=== PATIENT | female | born 1990 | race Caucasian/White ===

== ENCOUNTER → 2017-05-23 13:32 | Outpatient (CLI) | payer MEDICAID, SELFPAY ==
[2017-05-26 09:37] LABS: HPV Reflexed? NOT INDICATED
== END ==
PROVIDERS: Family Provider Family Medicine; PCP Family Medicine; Visit Provider Nurse Practitioner Women's Health
DX: Z12.4 Encounter for screening for malignant neoplasm of cervix (principal)
CPT/HCPCS: 88175; G0145

== ENCOUNTER → 2017-05-27 13:27 | Outpatient (CLI) | payer MEDICAID, SELFPAY ==
--- NOTE | 2017-05-27 13:30 | US_ITS ---
STUDY: ULTRASOUND OF THE FEMALE PELVIS - COMPLETE REASON FOR EXAM: Female, 26 years old. Pelvic pain LMP: 04/18/2017. TECHNIQUE: Transabdominal and Transvaginal TECHNICAL QUALITY: Adequate. COMPARISON: None. FINDINGS: The uterus is anteverted and is in a midline position. The uterus measures 7.2 x 5.9 x 4 cm. Normal uterine cervix. The endometrium measures 10 mm in thickness, and is heterogeneous (striated). There is no demonstrated endometrial mass. There is no demonstrated myometrial mass. I.U.D. - The patient does not have an I.U.D. The right ovary is visualized. The right ovary measures 5 x 3.6 x 1.5 cm. There is no right ovarian cyst or ovarian mass. There is no visualized right adnexal mass or complex lesion. There is normal arterial and normal venous vascularity. The left ovary is visualized. The left ovary measures 3.4 x 2.6 x 3.4 cm. There is a small cyst/prominent follicle in the left ovary measuring about 1.5 cm. There is no visualized left adnexal mass or complex lesion. There is normal arterial and normal venous vascularity. There is no fluid in the cul-de-sac. The pre void volume of the bladder was 114 ml. US/Transvaginal Non- IMPRESSION: No significant abnormality is seen. Electronically Signed: Julio Cesar Lopez MD at 14:49 EDT Tel , Service support ,
--- NOTE | 2017-05-27 13:30 | US_ITS ---
STUDY: ULTRASOUND OF THE FEMALE PELVIS - COMPLETE REASON FOR EXAM: Female, 26 years old. Pelvic pain LMP: 04/18/2017. TECHNIQUE: Transabdominal and Transvaginal TECHNICAL QUALITY: Adequate. COMPARISON: None. FINDINGS: The uterus is anteverted and is in a midline position. The uterus measures 7.2 x 5.9 x 4 cm. Normal uterine cervix. The endometrium measures 10 mm in thickness, and is heterogeneous (striated). There is no demonstrated endometrial mass. There is no demonstrated myometrial mass. I.U.D. - The patient does not have an I.U.D. The right ovary is visualized. The right ovary measures 5 x 3.6 x 1.5 cm. There is no right ovarian cyst or ovarian mass. There is no visualized right adnexal mass or complex lesion. There is normal arterial and normal venous vascularity. The left ovary is visualized. The left ovary measures 3.4 x 2.6 x 3.4 cm. There is a small cyst/prominent follicle in the left ovary measuring about 1.5 cm. There is no visualized left adnexal mass or complex lesion. There is normal arterial and normal venous vascularity. There is no fluid in the cul-de-sac. The pre void volume of the bladder was 114 ml. US/Pelvic (Non ) IMPRESSION: No significant abnormality is seen. Electronically Signed: Julio Cesar Lopez MD at 14:49 EDT Tel , Service support ,
== END ==
PROVIDERS: Family Provider Family Medicine; PCP Family Medicine; Visit Provider Nurse Practitioner Women's Health
DX: R10.2 Pelvic and perineal pain (principal)
CPT/HCPCS: 76830; 76856; 93976

== ENCOUNTER 2018-04-10 06:30 | Emergency (ER) | payer MEDICARE, SELFPAY ==
[2018-04-10 06:31] VITALS: BP 112/80; PULSE 95; RESP 18; TEMP 36.7; O2SAT 99; BMI 16.9
--- NOTE | 2018-04-10 06:49 | US_ITS ---
STUDY: ULTRASOUND TRANSVAGINAL CLINICAL: Female, 27 years old. Pelvic pain TECHNIQUE: Transvaginal COMPARISON: May 27, 2017 FINDINGS: Normal uterine size measuring 9.4 x 5.9 x 4.4 cm in maximal craniocaudal dimension. There are no myometrial masses. Normal endometrial thickness measuring 14 mm. There are no endometrial masses, and there is no fluid in the endometrial cavity. Normal uterine cervix. Normal right ovary, measuring 2.6 x 1.5 x 1.8 cm. There is a 1.4 x 0.9 x 0.8 cm complex cystic structure within the right ovary. Normal left ovary, measuring 4.5 x 3.4 x 2.3 cm. There is a 1.6 x 1.2 x 1.3 cm hypoechoic structure within the left ovary. There is a 1.1 x 1.7 x 1.6 cm hypoechoic structure left ovary.. Small amount of fluid within the pelvis. There is a debris within the bladder. Polycystic ovary disease: No. US/Transvaginal Non- IMPRESSION: Bilateral ovarian flow identified. Debris within the urinary bladder. Correlate with urinalysis. This could represent blood products or infectious process. Small amount of fluid within the pelvis. Bilateral adnexal complex cystic structures. These may represent hemorrhagic or complex cyst. However other etiologies cannot be totally excluded and recommend 6-8 week follow-up ultrasound for resolution. Electronically Signed: Pool Kevin, at 7:57 EST Tel , Service support ,
[2018-04-10 06:56] LABS: Absolute Lymphocyte Count 2.23 X10^3/ul (0.83-4.51); Absolute Neutrophil Count 6.1 X10^3/uL (2.0-7.7); Basophil# 0.06 X10^3/uL; Basophil% 0.6 % (0-1); Differential Indicated SCAN CRITERIA MET; Eosinophil# 0.16 X10^3/uL; Eosinophils% 1.7 % (0-5); Hematocrit 42.1 % (37-47); Hemoglobin 14.3 g/dl (12.0-15.0); Lymphocyte # 2.23 X10^3/ul (4.0); Lymphocyte % 23.9 % (19-41); Mean Corpuscular Hgb 30.6 pg (27.0-32.0); Mean Corpuscular Volume 90.1 fL (81-99); Mean Platelet Vol. 9.9 fl (6.2-12.0); Monocyte# 0.79 X10^3/uL; Monocyte% 8.5 % (0-10); Neutrophil # 6.06 X10^3/uL (2.7-7.7); Neutrophil % 65.1 % (47-70); POSITIVE COUNT NO; POSITIVE DIFFERENTIAL NO; POSITIVE MORPHOLOGY YES; Platelet Count 322 K/mm3 (150-450); RBC Distribution Width CV 12.6 % (11.6-14.6); RBC Distribution Width SD 40.7 fl (35.1-43.9); Red Blood Count 4.67 M/mm3 (4.2-5.4); White Blood Count 9.3 K/mm3 (4.4-11.0)
[2018-04-10 07:01] LABS: Anion Gap 7 (5-15); BUN 14 mg/dL (7-18); BUN/Creat Ratio 19.3 RATIO (10-20); Calcium,Total 8.2 mg/dL (8.5-10.1); Chloride 111 mmol/L (98-107); Creatinine, Serum 0.73 mg/dL (0.55-1.02); EST Glomerular Filtration Rate 101 mL/min (>60); Est Glom Filt Rate - Afr Amer 122 mL/min (>60); Estimated Creatinine Clearance 73.94 ml/min; Glucose 110 mg/dL (74-106); Potassium 3.7 mmol/L (3.5-5.1); Sodium Level 140 mmol/L (136-145)
--- NOTE | 2018-04-10 08:10 | ED.DCSUM_ITS ---
- ER Visit Summary Date of Service: 04/10/18 Chief Complaint: Abdominal pain History of Present Illness: The patient is a 27 F who presents with suprapubic abdominal pain. It began about 5 hours ago. She describes it as stabbing. Severe. She feels better when she bends her legs up towards her. She has nauseated. No vomiting. No diarrhea. No dysuria frequency urgency hematuria. No history of prior similar symptoms. She does have a history of prior tubal ligation and LEEP. She has a history of depression and anxiety. Physical Examination: Afebrile vitals normal Moist mucous membranes Heart regular rate and rhythm Lungs clear Abdomen soft nondistended she has suprapubic abdominal tenderness without guarding without rebound Alert Test Results: CBC BMP normal. Pelvic ultrasound shows bilateral ovarian flow, there is debris in the urinary bladder, there are bilateral adnexal complex cystic structures concerning for hemorrhagic or complex ovarian cysts. Emergency Department Course and Treatment: On reevaluation patient is lying on her side crying. However she does not have guarding she is out of rebound. She does appear to have bilateral cysts and possible UTI as well. She has not yet provided a UA. IV Toradol and Zofran have been ordered. Patient will be signed out to the oncoming physician to reevaluate. If able to obtain adequate pain control she can be discharged to follow-up with [facility]. Treatment Plan: [] Disposition: Pending UA, reevaluation Impression: Bilateral ovarian cysts This note was generated with [employer] dictation software. It may contain incorrect words, spelling, and punctuation that were not noted in review of the chart prior to signing ED Disposition - Plan for ED Patient: Referrals: Abiel Hood MD [Primary Care Provider] -
--- NOTE | 2018-04-10 08:11 | ED.DEP ---
ED Disposition - Plan for ED Patient: Instructions: ED Cyst Ovarian Prescriptions: Hydrocodone Bitart/Apap 5-325 [Eldred 5MG-325MG] 1 tab PO Q6H PRN PRN 3 Days #10 tab PRN Reason: Pain Referrals: Abiel Hood MD [Primary Care Provider] - Geovanna Ch DO [STAFF PHYSICIAN] -
[2018-04-10 08:26] LABS: Squamous Epithelial Cells - UA 0 SEEN /hpf (5-10)
[2018-04-10] MEDS: Ketorolac 30 MG/ML Syringe IV (08:29)
[2018-04-10] MEDS: Ondansetron 4 MG/2 ML Vial IV (08:29)
[2018-04-10 08:30] LABS: Color, Urine Yellow (Yellow); Glucose, Dipstick Normal (Normal); Ketone-Dipstick 5 mg/dl (Negative); Leukocyte Esterase-Dipstick 100 /ul (Negative); Nitrite-Dipstick Positive (Negative); Occult Blood-Urine 10 /ul (Negative); Protein-Dipstick 30 mg/dl (Negative); Urine Bilirubin Dipstick Negative (Negative); Urine Clarity Cloudy (Clear); Urine Urobilinogen Normal (Normal); Urine pH 6.5 (5.0 - 8.0)
[2018-04-10 08:33] VITALS: RESP 16
[2018-04-10 09:02] LABS: Bacteria 4+ /hpf (None Seen); Mucous, Urine 1+ /hpf (<or=2+); Red Blood Cells-Urine 0-5 SEEN /hpf (0-5); White Blood Cells 10-25 SEEN /hpf (0-5)
[2018-04-10 10:05] LABS: Internal QC Validated? YES +Cl - CLEAR BKGD; Pregnancy, Urine Negative Negative
[2018-04-10 10:21] VITALS: BP 106/76; PULSE 76; RESP 17; O2SAT 97
--- NOTE | 2018-04-10 10:22 | ED.RN ---
IV DC'ED, CATHETER INTACT, SMALL GAUZE DRESSING PLACED. DISCHARGE INSTRUCTIONS GIVEN TO AND REVIEWED WITH PATIENT, PATIENT DENIES QUESTIONS OR CONCERNS AND VOICES UNDERSTANDING OF DISCHARGE INSTRUCTIONS. PT AMBULATES OUT OF ROOM WITHOUT DIFFICULTY.
== END 2018-04-10 10:23 | disposition home or self-care (01) ==
PROVIDERS: Emergency Provider Emergency Medicine; Family Provider Family Medicine; PCP Family Medicine
DX: N83.202 Unspecified ovarian cyst, left side (principal); N83.201 Unspecified ovarian cyst, right side; Z98.51 Tubal ligation status; Z72.0 Tobacco use; R10.2 Pelvic and perineal pain
CPT/HCPCS: 76830; 80048; 81001; 81025; 85025; 93976; 96374; 96375; 99283; A4216; J2405

== ENCOUNTER 2019-04-03 13:02 | Emergency (ER) | payer MEDICARE, MEDICAID, SELFPAY ==
[2019-04-03 13:03] VITALS: BP 141/106; PULSE 118; RESP 16; TEMP 36.6; O2SAT 99; BMI 18.5
--- NOTE | 2019-04-03 15:05 | ED.DCSUM_ITS ---
- ER Visit Summary Date of Service: 04/03/19 Chief Complaint: Hit in the right eye with a toy accidentally by her child History of Present Illness: The patient is a 28 F past medical history of mitral valve prolapse. No prior eye history or eye surgery. She does wear glasses occasionally. Does not wear contacts. Patient states on Tuesday her child was playing with a toy that actually struck her in the right eye. She says it feels like it was a scratch or foreign body on the medial aspect of her right eye. She denies any discharge other than watering. It is uncomfortable. Physical Examination: Young female no acute distress vital signs stable afebrile. H EENT exam pupils equal round reactive to light. 2 mm bilaterally. Extraocular motions are intact. There is a small subconjunctival hemorrhage about midnight on the right eye on the sclera above the iris. The right eye is injected. Is watering. There is no discharge. Upper and lower lids were everted were unremarkable. Tetracaine was instilled in the right eye and did cause immediate relief. Slit-lamp examination was performed after fluorescein staining. At about 4:00 on the iris there is a small corneal abrasion. No foreign body noted. No ulcer. Otherwise unremarkable. Lungs are clear. Heart regular rhythm no murmur. Otherwise exam unremarkable. There is no other signs of any facial trauma or preauricular lymphadenopathy. There is no proptosis or periorbital orbital cellulitis. Test Results: Slit-lamp exam right eye. Emergency Department Course and Treatment: Tetracaine improved the discomfort. Bacitracin ophthalmic ointment was placed in the right eye she will be discharged. Treatment Plan: With ophthalmology as needed. Bacitracin twice daily. Tetracaine for the next 24 hours for pain. Then discard. Disposition: discharge Impression: Acute right eye corneal abrasion This note was generated with [employer] dictation software. It may contain incorrect words, spelling, and punctuation that were not noted in review of the chart prior to signing ED Disposition - Plan for ED Patient: Referrals: Abiel Hood MD [Primary Care Provider] -
--- NOTE | 2019-04-03 15:09 | ED.DEP ---
ED Disposition - Plan for ED Patient: Disposition: Home or Assisted Living Instructions: ED Corneal Abrasion Referrals: Lawrence Goldberg MD [STAFF PHYSICIAN] - 3-5 Days if not improving Additional Instructions: Current antibiotic ointment twice daily. Cool compresses to the right eye. Tylenol and/or Motrin for pain. For the next 24 hours you may use the tetracaine eyedrops for pain. After tomorrow night Tuesday night you can no longer use them because they retard healing. Follow-up with the eye doctor if not improving.
[2019-04-03] MEDS: Fluorescein 1 MG STRIP 1 STRIP RIGHT EYE (15:15)
[2019-04-03] MEDS: Tetracaine 0.5% Ophthalmic Bottle 6 DRP RIGHT EYE (15:15)
== END 2019-04-03 15:18 | disposition home or self-care (01) ==
PROVIDERS: Emergency Provider Emergency Medicine; PCP Family Medicine
DX: S05.01XA Injury of conjunctiva and corneal abrasion without foreign body, right eye, initial encounter (principal); W22.8XXA Striking against or struck by other objects, initial encounter; Y93.9 Activity, unspecified; Y92.89 Other specified places as the place of occurrence of the external cause; Y99.9 Unspecified external cause status; H11.31 Conjunctival hemorrhage, right eye; I34.1 Nonrheumatic mitral (valve) prolapse; Z72.0 Tobacco use
CPT/HCPCS: 99282

== ENCOUNTER 2021-12-17 17:07 | Emergency (ER) | payer MEDICARE, MEDICAID, SELFPAY ==
[2021-12-17 17:08] VITALS: BP 130/90; PULSE 103; RESP 14; TEMP 36.8; O2SAT 99; BMI 22.8
--- NOTE | 2021-12-17 17:21 | EDS_ITS ---
HPI History of Present Illness Chief Complaint: Dental Informant: patient Narrative Narrative: 31-year-old female she resenting to the emergency room out of concern for dental abscess. Patient began to have a left lower jaw pain and swelling last night that increased in size and pain today. She states the tooth that is painful has been broken for some time. She is a smoker. Her dentist retired 2 years ago. She states that she has found a dentist in [place] but has not yet established care. She denies any fevers. [facility] Medical History Abnormal Pap smear of cervix Anxiety Home Medications amoxicillin 875 mg-potassium clavulanate 125 mg tablet 875 mg PO Q12H #20 TAB LETS 12/17/21 [Rx Last Taken Unknown] hydrocodone-acetaminophen 5-325mg 5mg-325mg 1 tab PO Q6H PRN PRN Pain 3 days #12 TABLETS 12/17/21 [Rx Last Taken Unknown] Allergy/AdvReac Type Severity Reaction Status Date / Time citalopram [From Celexa] Allergy Hives Verified 04/03/19 13:05 bupropion HCl AdvReac Other Verified 04/03/19 13:05 [From Wellbutrin] fluoxetine HCl [From Prozac] AdvReac Upset Verified 04/03/19 13:05 Stomach paroxetine HCl [From Paxil] AdvReac Other Verified 04/03/19 13:05 sertraline HCl [From Zoloft] AdvReac Upset Verified 04/03/19 13:05 Stomach Surgical History H/O LEEP Tubal ligation status Social History Smoking Status: Current every day smoker alcohol intake: never substance use type: does not use caffeine: Yes (occasionally) what type of physical activity do you participate in: none seatbelt use: always do you feel safe at home: Yes additional social history: Single Patient is currently unemployed ROS ROS ED Constitutional Constitutional ED: Denies chills or weight loss Eyes Eyes: Denies change in vision or diplopia ENT ENT ED: Reports other Details: There is some swelling along the right mandible. The first molar is severely decayed. The floor the mouth is soft and I do not appreciate any trismus. There is no overlying erythema and there is no drainable abscess that I can see at this time. ; Denies ear pain, rhinorrhea or sore throat Cardiovascular Cardiovascular: Denies chest pain, orthopnea, palpitations or racing heartbeat Respiratory/Chest Respiratory/Chest: Denies cough, dyspnea or orthopnea Gastrointestinal Gastrointestinal: Denies abdominal pain, diarrhea, nausea or vomiting Genitourinary Genitourinary ED: Denies dysuria, hematuria or urinary frequency Musculoskeletal Musculoskeletal: Denies arthralgias or myalgias Integumentary Denies abscess or rash Neurologic Neurologic: Denies headache(s) or weakness Psychiatric Psychiatric: Denies anxiety, depression, suicidal ideation or suicidal thoughts Endocrine Endocrinology: Denies polydipsia, polyphagia or polyuria Allergic/Immunologic Allergic/Immunologic ED: Denies mouth swelling, tongue swelling or urticaria EXAM Physical Exam Const Vital Signs: 12/17/21 17:08 Temperature 98.2 F Temperature Source Temporal Pulse Rate 103 H Respiratory Rate 14 Blood Pressure 130/90 H Blood Pressure Mean 103 Pulse Ox 99 Oxygen Delivery Method Room Air MDM MDM MDM Narrative Medical decision making narrative: Patient will be started on antibiotics and pain medication. Instructions to see dentist as soon as possible Discharge Plan Triage Chief Complaint: Dental ED Provider: Juan Perry Dx/Rx/DC Orders Clinical Impression: Abscess, dental, Acute facial pain, MVP (mitral valve prolapse) Instructions: ED Dental Abscess Prescriptions: New hydrocodone-acetaminophen [hydrocodone-acetaminophen] 5-325 mg tablet 1 tab PO Q6H PRN PRN (Reason: Pain) 3 Days Qty: 12 0RF amoxicillin-pot clavulanate [amoxicillin-pot clavulanate] 875-125 mg tablet 875 mg PO Q12H Qty: 20 0RF Primary Care Provider: Abiel Hood Referrals: Abiel Hood MD [Primary Care Provider] - Disposition Disposition: Home, Self Care
== END 2021-12-17 17:35 | disposition home or self-care (01) ==
LOC: ED 17:32
PROVIDERS: Emergency Provider Emergency Medicine; PCP Family Medicine; Visit Provider Emergency Medicine
DX: K04.7 Periapical abscess without sinus (principal); R51.9 Headache, unspecified; F17.200 Nicotine dependence, unspecified, uncomplicated; I34.1 Nonrheumatic mitral (valve) prolapse
CPT/HCPCS: 99282

== ENCOUNTER 2023-04-15 06:35 | Day surgery (SDC) | payer MEDICARE, MEDICAID, SELFPAY ==
--- NOTE | 2023-04-13 17:15 | PCM.HP.BLA ---
History and Physical Date of Admission: 04/15/23 Expand All Collapse All Pre-Op History and Physical ? HPI: The patient is a 32 year old female presenting for discussion regarding AUB/EMB polyp and upcoming surgery. Pt reports has bleeding constarntly. Sometimes heavy but just annoying. Pt wants to know if this surgery will help stop bleeding. Pt uses tubal ligtion for BC. ? pre-operative visit. She is scheduled for Hysteroscopy D&C and polypectomy, for AUB, EM polyps found on ultrasound on 04/15/23. Procedure discussed along with risks, benefits and complications. Other alternatives discussed for management. Consent form signed? Yes. ? ? PAST MEDICAL HISTORY PAST MEDICAL HISTORY Diagnosis Date ? Abnormal Pap smear of cervix ? ? ADHD (attention deficit hyperactivity disorder) ? ? Anxiety ? ? Depression ? ? Mitral valve prolapse 2008 ? Post depression ? ? ? PAST SURGICAL HISTORY PAST SURGICAL HISTORY Procedure Laterality Date ? LEEP PROCEDURE ([facility])_*[place] ? 2010 ? LIGATE FALLOPIAN TUBE ? 10/04/2016 ? PAST SURGICAL HISTORY OF ? 2012 ? wisdom teeth ? ? ? CURRENT MEDICATIONS Current Outpatient Medications Medication Sig Dispense Refill ? mirtazapine (REMERON) 15 mg tablet ? atomoxetine (STRATTERA) 25 mg capsule ? cetirizine (ZYRTEC) 10 mg tablet Take 1 tablet by mouth once daily. 30 tablet 5 ? desvenlafaxine ER (PRISTIQ) 50 mg 24 hr tablet Take 1 tablet by mouth once daily. 30 tablet 11 ? ibuprofen (MOTRIN) 800 mg tablet Take 1 tablet by mouth every 8 hours as needed for pain. Take with food. 30 tablet 1 ? Cholecalciferol, Vitamin D3, (VITAMIN D) 25 mcg (1,000 unit) cap Take 1,000 Units by mouth once daily. ? ? ? No current facility-administered medications for this visit. ? ? ALLERGIES: Celexa [Citalopram], Paxil [Paroxetine Hcl], Prozac [Fluoxetine Hcl], Wellbutrin [Bupropion Hcl], and Zoloft [Sertraline Hcl] ? PERSONAL HISTORY: SOCIAL HISTORY Social History ? Tobacco Use ? Smoking status: Every Day ? ? Packs/day: 0.50 ? ? Years: 10.00 ? ? Additional pack years: 0.00 ? ? Total pack years: 5.00 ? ? Types: Cigarettes ? ? Passive exposure: Current ? Smokeless tobacco: Never ? Tobacco comments: ? ? Was 1 ppd Vaping Use ? Vaping Use: Some days ? Substances: Nicotine Substance Use Topics ? Alcohol use: No ? Drug use: No ? FAMILY HISTORY: FAMILY HISTORY FAMILY HISTORY Problem Relation Age of Onset ? Psychiatry Mother ? ? anxiety,depression ? Psychiatry Father ? ? PTSD ? Psychiatry Sister ? ? other (anxiety) Sister ? ? other (depression) Sister ? ? other (ADHD) Brother ? ? Heart Maternal Grandmother ? ? Heart Maternal Grandfather ? ? Heart Paternal Grandmother ? ? Diabetes Paternal Grandfather ? ? Heart Paternal Grandfather ? ? Leukemia Maternal Uncle ? ? ? REVIEW OF SYMPTOMS: negative except as noted above PHYSICAL EXAMINATION: ? VITALS: Blood pressure 102/60, weight 108 lb (49 kg), last menstrual period 03/26/2023, not currently . ? GENERAL: The patient is well nourished, well hydrated in no acute distress. , The patient is oriented to time, place, and person. NECK: full range of motion ? ? IMPRESSION: AUB, EM polyp on ultrasound ? PLAN: Hysteroscopy, D&C, polypectomy with symphion ? Pt has been counseled on risks/benefits and alternatives of surgery including but not limited to anesthesia, bleeding, infection, uterine perforation with subsequent injury to pelvic structures including bowel, bladder, ureters and vessels. Pt wishes to proceed with surgery at this time. ? I have reviewed and updated past medical and surgical history, medications and allergies Kierra Cross MD Office Visit on 04/13/2023 Office Visit on 04/13/2023 Note shared with patient
--- OUTSIDE RECORDS SUMMARY | 2023-04-15 06:56 | XMS RPT_ITS | CCD ---
Author Name Unknown Address [address] [place] [address] Organization [facility] Care Team Providers Care Product Sales Representative Name Role Phone Nicolasa Chacon MD Unavailable [phone] Prosper [employer], Alyssa Lopes Unavailable [phone] ALLEN THOMPSON Unavailable Unavailable JHONNY SCHULTZ Unavailable Unavailable JHONNY SCHULTZ Unavailable Unavailable Prosper [employer], Alyssa Lopes Unavailable [phone] Nicolasa Chacon MD Unavailable [phone] JUAN MANUEL CARL Attending Unavailable JHONNY SCHULTZ Primary Care Unavailable RENEE SCHMIDT Referring Unavailable JHONNY SCHULTZ Primary Care Unavailable RENEE SCHMIDT Attending Unavailable JHONNY SCHULTZ Primary Care Unavailable JHONNY SCHULTZ Primary Care Unavailable Jhonny Schultz MD Primary Care Provider [phone] Allergies Allergy Classification Reported Allergen(s) Allergy Type Date of Onset Reaction(s) Facility (12 sources) buPROPion drug allergy 7 [facility] (12 sources) citalopram drug allergy 7 [facility] (12 sources) FLUoxetine drug allergy 7 [facility] (12 sources) PARoxetine drug allergy 7 [facility] (12 sources) sertraline drug allergy 7 [facility] (2 sources) buPROPion; Translations: [BUPROPION HCL] Drug Allergy 2 GI Upset [facility] (2 sources) Citalopram; Translations: [CITALOPRAM] Drug Allergy 7 Other: See Comments [facility] (2 sources) FLUoxetine; Translations: [FLUOXETINE HCL] Drug Allergy 2 GI Upset [facility] (2 sources) PARoxetine; Translations: [PAROXETINE HCL] Drug Allergy 2 GI Upset [facility] (2 sources) Sertraline; Translations: [SERTRALINE HCL] Drug Allergy 2 GI Upset [facility] Medications Completed/Discontinued Medications Medication Drug Class(es) Dates Sig (Normalized) Sig (Original) atomoxetine 25 mg oral capsule (1 source) Norepinephrine Reuptake Inhibitor Start: 02-15-2023 atomoxetine (STRATTERA) 25 mg capsule cetirizine hydrochloride 10 mg oral tablet (1 source) Histamine-1 Receptor Antagonist Start: 09-02-2021 take 1 tablet by mouth once daily cetirizine (ZYRTEC) 10 mg tablet Indications: Allergy, subsequent encounter Take 1 tablet by mouth once daily. 30 tablet 5 09/02/2021 Active Problems Active Problems Problem Classification Problem Date Documented Da te Episodic/Chronic Heart valve disorders (1 source) Mitral valve prolapse; Translations: [Nonrheumatic mitral (valve) prolapse] Onset: 02-18-2023 02-18-2023 Chronic Menstrual disorders (2 sources) Irregular menstruation, unspecified; Translations: [Excessive and frequent menstruation with irregular cycle] Onset: 03-04-2023 Chronic Other female genital disorders (1 source) Abnormal uterine bleeding; Translations: [Abnormal uterine and vaginal bleeding, unspecified] 04-13-2023 Chronic Other female genital disorders (1 source) Polyp of corpus uteri; Translations: [Polyp of corpus uteri] 04-13-2023 Episodic Unclassified (2 sources) care ; Translations: [Encounter for routine follow-up] Onset: 11-18-2016 11-18-2016 Unclassified (1 source) Unknown / UNK(Unknown) Onset: 08-25-2016 Past or Other Problems Problem Classification Problem Date Documented Date Episodic/Chronic Cancer of cervix (1 source) Low grade squamous intraepithelial lesion on cervical Papanicolaou smear; Translations: [Low grade squamous intraepithelial lesion on cytologic smear of cervix (LGSIL)] Onset: 03-31-2016 03-31-2016 Episodic Malaise and fatigue (1 source) Other fatigue; Translations: [Lethargic ] Onset: 10-13-2022 Episodic Nonspecific chest pain (1 source) Chest pain Onset: 08-25-2016 Episodic Normal and/or delivery (8 sources) Gestation period, 39 weeks; Translations: [39 weeks gestation of ] Onset: 09-23-2016 Resolved: 11-18-2016 11-18-2016 Episodic Other aftercare (1 source) Other parts counterman (current) drug therapy; Translations: [On angiotensin receptor blockers (ARB)] Onset: 10-13-2022 Episodic Other circulatory disease (1 source) H/O: heart disorder; Translations: [Personal history of other diseases of the circulatory system] Onset: 03-11-2016 03-11-2016 Episodic Other complications of ; puerperium affecting management of mother (20 sources) High risk ; Translations: [Supervision of high risk , unspecified, third trimester] Onset: 09-23-2016 Resolved: 11-18-2016 11-18-2016 Episodic Other complications of (1 source) Previous operation to cervix affecting ; Translations: [Maternal care for other abnormalities of cervix, unspecified trimester] Onset: 11-25-2014 11-25-2014 Episodic Screening and history of mental health and substance abuse codes (1 source) H/O: depression; Translations: [Personal history of other mental and behavioral disorders] Onset: 03-11-2016 03-11-2016 Episodic Unclassified (12 sources) 38 weeks gestation of ; Translations: [38 weeks gestation of ] Onset: 09-23-2016 09-23-2016 Results Test Name Value Interpretation Reference Range Facil ity Vital Signs Date Time Vital Sign Value Performing Clinician Faci lity 04-13-2023 09:32-0500 Body weight 48.99 kg Kierra Cross MD Work Phone: [facility] 04-13-2023 09:32-0500 Diastolic blood pressure 60 mm[Hg] Kierra Cross MD Work Phone: [facility] 04-13-2023 09:32-0500 Systolic blood pressure 102 mm[Hg] Kierra Cross MD Work Phone: [facility] 09-28-2017 14:45-0400 BMI (Body Mass Index) 20.33 kg/m2 Nicolasa Chacon MD [facility] 11-18-2016 14:45-0400 Body Temperature 97.3 [degF] Nicolasa Chacon MD [facility] 11-18-2016 14:45-0400 BP Diastolic 71 mm[Hg] Nicolasa Chacon MD [facility] 11-18-2016 14:45-0400 BP Systolic 118 mm[Hg] Nicolasa Chacon MD [facility] 11-18-2016 14:45-0400 Pulse (Heart Rate) 63 /min Nicolasa Chacon MD [facility] 11-18-2016 14:45-0400 Respiratory Rate 16 /min Nicolasa Chacon MD [facility] 11-18-2016 14:45-0400 Weight 48.81 kg Nicolasa Chacon MD [facility] 09-29-2016 11:22-0400 BMI (Body Mass Index) 21.95 kg/m2 Alyssa Cheng [employer] [facility] 09-29-2016 11:22-0400 Body Temperature 97.9 [degF] Alyssa Prosper [facility] 09-29-2016 11:22-0400 BP Diastolic 68 mm[Hg] Alyssa Prosper [employer] [facility] 09-29-2016 11:22-0400 BP Systolic 110 mm[Hg] Alyssa Orchard [employer]ER [facility] 09-29-2016 11:22-0400 Pulse (Heart Rate) 82 /min Alyssa Prosper [employer]ICER [facility] 09-29-2016 11:22-0400 Respiratory Rate 16 /min Alyssa Orchard [employer]ER [facility] 09-29-2016 11:22-0400 Weight 52.71 kg Alyssa Edwardss [employer]ER [facility] 09-23-2016 15:34-0400 BMI (Body Mass Index) 21.92 kg/m2 Alyssa Prosper [employer]ICER [facility] 09-23-2016 15:34-0400 Body Temperature 97.9 [degF] Alyssa Orchard [employer] [facility] 09-23-2016 15:34-0400 BP Diastolic 66 mm[Hg] Alyssanegrito Edwardss [employer]ER [facility] 09-23-2016 15:34-0400 BP Systolic 102 mm[Hg] Alyssanegrito Cheng [employer] [facility] 09-23-2016 15:34-0400 Height 154.94 cm Alyssa Prosper [employer] [facility] 09-23-2016 15:34-0400 Pulse (Heart Rate) 88 /min Alyssa Cheng [employer] [facility] 09-23-2016 15:34-0400 Respiratory Rate 16 /min Alyssa Cheng [employer] [facility] 09-23-2016 15:34-0400 Weight 52.62 kg Alyssa Orchard [employer] [facility] Encounters Encounter Date Encounter Type Care Provider Facility Start: 04-13-2023 End: 04-13-2023 Patient encounter procedure Kierra Cross MD Work Phone: OB/Gynecology Procedures Date Procedure Procedure Detail Performing Clinician Start: 10-03-2016 End: 10-03-2016 Antibody screen Nicolasa Peters Start: 09-29-2016 End: 09-29-2016 Antepartum care only Alyssa Cheng [employer] Work Phone: Start: 09-23-2016 End: 09-23-2016 Antepartum care only Alyssa Cheng [employer] Work Phone: Start: 09-23-2016 End: 09-27-2016 Streptococcus agalactiae DNA [Presence] in Unspecified specimen by GABRIELLA with probe detection Alyssa Cheng [employer] Work Phone: Plan of Treatment Date Care Activity Detail Author Start: 02-19-2028 Screening for malignant neoplasm of cervix [facility] Start: 07-14-2026 Urine microalbumin profile DTaP,Tdap,Td Vaccine (8 - Td or Tdap) [facility] Start: 02-21-2023 Depression Assessment Depression Assessment [facility] Start: 10-22-2022 Influenza [facility] Start: 11-18-2016 End: 11-18-2016 Appointment Appointment [facility] Start: 10-06-2016 End: 10-06-2016 Appointment Appointment [facility] Start: 09-29-2016 End: 09-29-2016 Appointment Appointment [facility] Start: 09-23-2016 End: 09-23-2016 Appointment Appointment [facility] Start: 09-23-2016 End: 09-23-2016 HbA1c HGBA1C [facility] Start: 09-23-2016 End: 09-23-2016 Ob us >/= 14 wks, sngl fetus US OB, >14 weeks [facility] Start: 09-23-2016 End: 09-27-2016 Streptococcus agalactiae DNA [Presence] in Unspecified specimen by GABRIELLA with probe detection *GBSD - Group B Strep, DNA by PCR [facility] Start: 07-10-1995 Pneumococcal vaccination Pneumococcal Vaccine (1 of 2 - PCV) [facility] Start: 01-09-1990 Covid-19 Vaccine (#1) Covid-19 Vaccine (#1) [facility] Start: 1989 Hepatitis B Vaccine (1 of 3 - 3-dose series) Hepatitis B Vaccine (1 of 3 - 3-dose series) [facility] Immunizations Immunization Date Immunization Notes Care Provider Harmony sanchez 07-14-2016 tetanus toxoid, redu shanelle diphtheria toxoid, and acellular pertussis vaccine, adsorbed Kierra Cross MD Work Phone: [facility] Work Phone: 04-22-2015 tetanus toxoid, redu shanelle diphtheria toxoid, and acellular pertussis vaccine, adsorbed Kierra Cross MD Work Phone: [facility] 11-08-2001 measles, mumps and rubella virus vaccine Kierra Cross MD Work Phone: [facility] Payers Date Payer Category Payer Medicaid [id number] 2022 Medicaid [facility] [id number] 2022-Present [phone] [address] [place] [address] Medicaid [id number] 2019 Medicaid [id number] 2017 Medicare [id number] 2017 Medicare MEDICARE MEDICAR E A AND B [id number] 2017-Present [phone] [place] [address] Medicare [id number] 2013 Unknown [id number] 1989 Unknown [id number] Social History Date Type Detail Facility Start: 02-18-2023 Tobacco smoking stat [facility] Smokes tobacco daily [facility] History of tobacco use Cigarette Smoker [facility] Start: 09-02-2021 End: 02-18-2023 Cigarettes smoked current (pack per day) - Reported 0.5 [facility] History of tobacco use Passive smoker [facility] Start: 02-18-2023 Tobacco use and exposure Smoke less tobacco non-user [facility] Start: 04-13-2023 Alcohol intake Current non-dr [employer] member of alcohol (finding) [facility] Start: 02-18-2023 End: 04-13-2023 Tobacco use panel [facility] Adult Depression Screening Assessment 4 [facility] Start: 02-18-2023 Tobacco Comment Was [facility] ppd [facility] Start: 1990 Sex Assigned At Female [facility] Start: 08-31-2021 Gender identity Identifies as female gender (finding) [facility] Start: 08-31-2021 Sexual orientation Heterosexual (fin ding) [facility] History and physical note 04-13-2023 Kierra Holman MD - 04/13/2023 10:49 AM EST Note Date & Type Note Facility 04-13-2023 History and physi yasmani note Pre-Op History and Physical HPI: The patient is a 32 year old female presenting for discussion regarding AUB/EMB polyp and upcoming surgery. Pt reports has bleeding constarntly. Sometimes heavy but just annoying. Pt wants to know if this surgery will help stop bleeding. Pt uses tubal ligtion for BC. pre-operative visit. She is scheduled for Hysteroscopy D&C and polypectomy, for AUB, EM polyps found on ultrasound on 04/15/23. Procedure discussed along with risks, benefits and complications. Other alternatives discussed for management. Consent form signed? Yes. PAST MEDICAL HISTORY Diagnosis Date Abnormal Pap smear of cervix ADHD (attention deficit hyperactivity disorder) Anxiety Depression Mitral valve prolapse 2008 Post depression PAST SURGICAL HISTORY Procedure Laterality Date LEEP PROCEDURE ([facility] DEPT)_*FL 2010 LIGATE FALLOPIAN TUBE 10/04/2016 PAST SURGICAL HISTORY OF 2013 wisdom teeth Current Outpatient Medications Medication Sig Dispense Refill mirtazapine (REMERON) 15 mg tablet atomoxetine (STRATTERA) 25 mg capsule cetirizine (ZYRTEC) 10 mg tablet Take 1 tablet by mouth once daily. 30 tablet 5 desvenlafaxine ER (PRISTIQ) 50 mg 24 hr tablet Take 1 tablet by mouth once daily. 30 tablet 11 ibuprofen (MOTRIN) 800 mg tablet Take 1 tablet by mouth every 8 hours as needed for pain. Take with food. 30 tablet 1 Cholecalciferol, Vitamin D3, (VITAMIN D) 25 mcg (1,000 unit) cap Take 1,000 Units by mouth once daily. No current facility-administered medications for this visit. ALLERGIES: Celexa [Citalopram], Paxil [Paroxetine Hcl], Prozac [Fluoxetine Hcl], Wellbutrin [Bupropion Hcl], and Zoloft [Sertraline Hcl] PERSONAL HISTORY: Social History Tobacco Use Smoking status: Every Day Packs/day: 0.50 Years: 10.00 Additional pack years: 0.00 Total pack years: 5.00 Types: Cigarettes Passive exposure: Current Smokeless tobacco: Never Tobacco comments: Was 1 ppd Vaping Use Vaping Use: Some days Substances: Nicotine Substance Use Topics Alcohol use: No Drug use: No FAMILY HISTORY: FAMILY HISTORY Problem Relation Age of Onset Psychiatry Mother anxiety,depression Psychiatry Father PTSD Psychiatry Sister other (anxiety) Sister other (depression) Sister other (ADHD) Brother Heart Maternal Grandmother Heart Maternal Grandfather Heart Paternal Grandmother Diabetes Paternal Grandfather Heart Paternal Grandfather Leukemia Maternal Uncle REVIEW OF SYMPTOMS: negative except as noted above PHYSICAL EXAMINATION: VITALS: Blood pressure 102/60, weight 108 lb (49 kg), last menstrual period 03/26/2023, not currently . GENERAL: The patient is well nourished, well hydrated in no acute distress. , The patient is oriented to time, place, and person. NECK: full range of motion IMPRESSION: AUB, EM polyp on ultrasound PLAN: Hysteroscopy, D&C, polypectomy with symphion Pt has been counseled on risks/benefits and alternatives of surgery including but not limited to anesthesia, bleeding, infection, uterine perforation with subsequent injury to pelvic structures including bowel, bladder, ureters and vessels. Pt wishes to proceed with surgery at this time. I have reviewed and updated past medical and surgical history, medications and allergies Kierra Cross MD documented in this encounter [facility] Progress note 03-04-2023 Note Date & Type Note Facility 03-04-2023 Note HNO ID: [id number] Author: SMILEY BOYCE RDMS Service: ? Author Type: Brusher Type: Progress Notes Filed: 03/04/2023 10:32 Note Text: Radiology Service Progress Note PATIENT NAME: Nevin Pickett DATE OF SERVICE: March 04, 2023 TIME: 10:32 AM PATIENT IDENTITY VERIFICATION COMPLETED USING TWO (2) IDENTIFIERS: Name and Date of confirmed by patient verbally. FALL SCREENING: Has the patient had 2 falls in the last year or 1 fall with injury or currently using an Ambulatory Assistive Device (Walker, Cane, Wheelchair, Crutches, etc.)? No PATIENT GENDER DATA: Female. status: : No status: NO. PATIENT RELEVANT IMPLANT DATA REVIEWED: Not Applicable RADIOLOGY DEPARTMENT: Ultrasound PERIPHERAL IV DATA: Not applicable SIGNED BY: Smiley Boyce RDMS RVT March 04, 2023 10:32 AM [facility] Progress note 02-18-2023 Note Date & Type Note Facility 02-18-2023 Note HNO ID: [id number] Author: Renee Schmidt APRN.CNP Service: ? Author Type: Nurse Practitioner Type: Progress Notes Filed: 02/18/2023 10:45 AM Note Text: patient declined statistical financial analyst Nevin is a 32 year old who presents for an annual gynecologic exam with complaints, irregular bleeding, dysmenorrhea, and prolong bleeding . Menses: every 2-3 weeks with bleeding that will last 2-3 weeks. Contraception: tubal sterilization HPV vaccine: No Last Pap: 03/30/2016 abnormal, LSIL HPV: 03/24/2016 negative History of abnormal pap: Yes LEEP 2010 Last mammogram: never Sexually active: Yes Patient concerns for STD exposure: No. Pain with intercourse: No Postcoital bleeding: No OB History T2 L3 SAB0 IAB0 Ectopic0 Multiple0 Live Births2 Print Cutter History LMP: 02/13/2023, Having periods Age at Menarche: Age at First : Age at Menopause: Print Cutter History Comments: Sexual Activity: Yes; Male Contraception: None PAST MEDICAL HISTORY Diagnosis Date Abnormal Pap smear of cervix ADHD (attention deficit hyperactivity disorder) Anxiety Depression Mitral valve prolapse 2009 Post depression PAST SURGICAL HISTORY Procedure Laterality Date LEEP PROCEDURE ([facility] DEPT)_*FL 2010 LIGATE FALLOPIAN TUBE 10/04/2016 PAST SURGICAL HISTORY OF 2013 wisdom teeth FAMILY HISTORY Problem Relation Age of Onset Psychiatry Mother anxiety,depression Psychiatry Father PTSD Psychiatry Sister other (anxiety) Sister other (depression) Sister other (ADHD) Brother Heart Maternal Grandmother Heart Maternal Grandfather Heart Paternal Grandmother Diabetes Paternal Grandfather Heart Paternal Grandfather Leukemia Maternal Uncle SOCIAL HISTORY Social History Tobacco Use Smoking status: Every Day Packs/day: 0.50 Years: 10.00 Additional pack years: 0.00 Total pack years: 5.00 Types: Cigarettes Passive exposure: Current Smokeless tobacco: Never Tobacco comments: Was 1 ppd Vaping Use Vaping Use: Some days Substances: Nicotine Substance Use Topics Alcohol use: No Drug use: No REVIEW OF SYSTEMS Abdomen: No abdominal pain, nausea, vomiting, diarrhea, or constipation. No bloating, early satiety, indigestion, or increased flatulence. Bladder: No dysuria, gross hematuria, urinary frequency, urinary urgency, or incontinence. Breast: No breast lumps, nipple d/c, overlying skin changes, redness or skin retraction. Allergies and current medication updated:Yes EXAM: Ht 5' .5 (1.54m) Wt 114 lb 9.6 oz (52.0kg) LMP 02/13/2023 BMI 22.00 kg/(m2). GENERAL: pleasant, female in no apparent distress HEENT: Normocephalic, atraumatic, mucus membranes moist, and no lesions NECK: Supple, full range of motion, no adenopathy, and thyroid normal DERMATOLOGY: Normal, without lesions, non-icteric, and non-hirsute BREAST: soft, non-tender, symmetric, no dominant mass, normal nipple-areolar complex, no lymphadenopathy, and no nipple discharge CHEST: Normal inspiratory effort ABDOMEN: soft, non-tender, and no masses PELVIC: external genitalia normal, normal Bartholin's glands, urethra, [place]'s glands, no vulvar lesions, no cervical lesions, good vaginal support, physiologic discharge present, normal appearing perineal body and perianal region BIMANUAL: uterus normal size, shape and consistency, no adnexal masses, and non-tender RECTOVAGINAL: deferred. NEURO: alert and oriented x3,exam grossly non-focal EXTREMITIES: normal ASSESSMENT/PLAN: 1) Health maintenance: Pap done with HPV. Mammogram starting age 40. Nutrition, exercise and routine health maintenance exams reviewed. Calcium/Vitamin D supplementation information provided. 2) Contraception: tubal sterilization. Contraceptive options reviewed and information provided. 3) STD screening: Declined STD check. 4) Follow up one year or sooner as needed Pelvic US for irregular and prolong menses- Will notify patient of test results. Renee Schmidt, AMARA.[facility] History of Past illness Narrative 05-07-2016 Note Date & Type Note Facility documented as of this encounter (statuses as of 04/13/2023) [facility] Evaluation note Note Date & Type Note Facility documented in this encounter [facility] Summary Purpose Family History No Family History Records FoundNo Family History Records FoundNo Family History Records Found Advance Directives No Advanced Directives Records FoundNo Advanced Directives Records FoundNo Advanced Directives Records Found Additional Source Comments INFORMATION SOURCE (unrecogn ized section and content) DATE CREATED AUTHOR AUTHOR'S ORGANIZ ATION 06/28/2018 [facility] ([place]) DATE CREATED AUTHOR AUTHOR'S ORGANIZ ATION 03/11/2023 [facility] Source Comments (unrecognize d section and content) In the event this informatio n is protected by the Federal Confidentiality of Alcohol and Drug Abuse Patient Records regulations: The Federal rules restrict any use of the information to criminally investigate or prosecute any alcohol or drug abuse patient.[facility] Reason for Visit (unrecogniz ed section and content) Care Teams (unrecognized sec tion and content) FOR RECORDS PERTAINING TO PATIENTS WHO ARE OR HAVE BEEN ENROLLED IN A CHEMICAL DEPENDENCY/SUBSTANCEABUSE PROGRAM, SOME INFORMATION MAY BE OMITTED. This clinical summary was aggregated from multiple sources. Caution should be exercised in using it in the provision of clinical care. This summary normalizes information from multiple sources, and as a consequence, information in this document may materially change the coding, format and clinical context of patient data. In addition, data may be omitted in some cases. CLINICAL DECISIONS SHOULD BE BASED ON THE PRIMARY CLINICAL RECORDS. [employer] [facility]. provides no warranty or guarantee of the accuracy or completeness of information in this document.
[2023-04-15 06:57] VITALS: BP 135/81; PULSE 87; RESP 16; TEMP 36.7; O2SAT 100
[2023-04-15] MEDS: Lactated Ringers 1,000 ML 15 ML IV (07:14)
--- NOTE | 2023-04-15 08:35 | EMB_PTH ---
PATHOLOGY RESULTS PATIENT: FANNY BETH LOC: [facility] [place] U#:[id number] AGE/SX: 32/F ROOM: RE04/15/[address]: Dr. Kierra Cross MD : 1990 BED: DIS: 04/15/2023 SPEC #: [id number] RECD: 04/15/23 12:47 STATUS: RTENT KWAN #: [id number] HERMAN: 04/15/23 08:[address]: Kierra Cross DEPT: SURGICAL PATHOLOGY RECD BY: Maritza Casanova ENTERED: 04/15/23 12:48 SP TYPE: ENDOM BX/C OTHR DR: Dr. Abiel Hood MD Tissues: Endometrium, NOS Procedures: Surgery Specimen Level IV HEADER OPERATION: Hysteroscopy, D & C, polypectomy, Symphion PRE-OP DIAGNOSIS: Abnormal uterine bleeding, endometrial polyp TISSUE SUBMITTED: Endometrial curettings MICROSCOPIC DIAGNOSIS Endometrial curettings: Disordered proliferative endometrium to simple endometrial hyperplasia without atypia with focal glandular breakdown and morular metaplasia. Mild chronic endometritis. See comment. MARIA ISABEL:[email or web address] 04/18/2023 COMMENT Correlation with clinical findings and appropriate follow up are necessary. Case has been reviewed in consultation with Dr. Dempsey who concurs with the above diagnosis. IDC:AM MICROSCOPIC DESCRIPTION Slides are reviewed. GROSS DESCRIPTION Received in fixative is one container labeled with the patient's name and designated endometrial curettings. The specimen consists of multiple irregular fragments of cunningham-pink soft tissue that in aggregate measure 5.0 x 3.0 x 0.3 cm. The entire specimen is submitted in two cassettes. / MARIA ISABEL:festus 04/15/2023 TC:5 CPT: 18242
--- NOTE | 2023-04-15 08:43 | OP.PCM_ITS ---
Report of Operation Date of Procedure: 04/15/23 Pre-Operative Diagnosis: AUB, Endometrial polyp Post-Operative Diagnosis: Same Surgery/Procedure Performed:: Hysteroscopy, D&C- Symphion Description of Surgical Findings:: Tubal ostial, possible endometrial polypoid tissue at left tubal ostia Surgeon: Kierra Thornton transfer machine operator: None Type of Anesthesia: MAC Specimen's removed: endometrial curetting Estimated Blood Loss (mL): <5cc Fluids Replaced: 500cc Description of Procedure: Informed consent was obtained the patient was taken the operating room she was placed in supine position. She was given anesthesia. She was then placed in the [facility] where she was prepped and draped in the normal sterile fashion. At this time the weighted speculum was placed in the posterior fornix of vagina. Single-tooth tenaculum was used to gently grasp the anterior lip the cervix. At this time the uterine cavity was sounded to approximately 8 cm. Gentle dilatation was performed once adequate dilatation of the cervix was achieved the hysteroscope using normal saline as a distention medium was placed. Tubal ostia visualized. Possible polypoid tisse at left tubal ostia. Symphion resting device used to obtain endometrial curettingsy. Tissue will be sent to pathology for evaluation. Tenaculum removed. Good hemostasis. Instrument, lap count correct x 2. Vaginal Sweep was negative. Fluid deficit 500cc Grafts/Implants Used: none Procedure Start Time: 08:30 Procedure Stop Time: 08:39 Complications none Admit VTE Documentation VTE Present on Admission: Yes VTE Mechan Device Prophylaxis: SCD's VTE Pharm Prophylaxis ordered?: No Reason prophylaxis not ordered:: Procedure Not Indicated
--- NOTE | 2023-04-15 08:46 | DCINST_ITS ---
Discharge Instructions Diet Discharge Diet: No restrictions Activity May resume sexual activity in: 1 week Dressing / Incision Call your doctor if you observe: Fever of 101 or Higher, Inability to urinate, Using more than 1 pad per hour and Uncontrolled pain Follow Up Care Please Follow Up With: Kierra Thornton MD When: 1-2 weeks post OP if you need an appointment please call [phone] Test Results: Test results from this visit will be discussed in further detail at your follow- up appointment, if applicable. Discharge Plan Admission Attending Provider: Kierra Thornton Primary Care Provider: Abiel Hood Discharge Orders/Prescriptions Prescriptions: No Action mirtazapine [Remeron] 15 mg tablet 7.5 mg PO QHS atomoxetine 25 mg capsule 25 mg PO DAILY propranolol 20 mg tablet 20 mg PO BID PRN (Reason: anxiety) Referrals / Follow Up: Abiel Hood MD [Primary Care Provider] - Disposition Disposition (needs filled in before D/C Order can be placed): Home, Self Care
[2023-04-15 08:50] VITALS: BP 135/81; BP 88/54; PULSE 80; RESP 16; TEMP 36.2; O2SAT 100
[2023-04-15 08:55] VITALS: BP 135/81; BP 92/57; PULSE 82; RESP 16; O2SAT 100
[2023-04-15 09:00] VITALS: BP 135/81; BP 98/59; PULSE 67; RESP 16; TEMP 36.2; O2SAT 98
[2023-04-15 09:32] VITALS: BP 135/81
== END 2023-04-15 09:58 | disposition home or self-care (01) ==
LOC: SDC 06:39 → AC 06:41
PROVIDERS: PCP Family Medicine; Referring Provider Obstetrics & Gynecology; Visit Provider Obstetrics & Gynecology
PROC: 0UB98ZZ Excision of Uterus, Via Natural or Artificial Opening Endoscopic (ICD-10-PCS; CPT 58558; principal; 2023-04-15 08:20)
DX: N85.01 Benign endometrial hyperplasia (principal); F31.9 Bipolar disorder, unspecified; N71.1 Chronic inflammatory disease of uterus; N93.9 Abnormal uterine and vaginal bleeding, unspecified; F17.210 Nicotine dependence, cigarettes, uncomplicated; N84.0 Polyp of corpus uteri; Z98.51 Tubal ligation status; F12.90 Cannabis use, unspecified, uncomplicated; I34.1 Nonrheumatic mitral (valve) prolapse
CPT/HCPCS: 58558; 00952; 88305; J7120; J2405